=== PATIENT | female | born 2000 | race African-American/Black ===

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

== ENCOUNTER 2020-05-20 00:38 | Emergency (ER) | payer BC, MEDICAID ==
[~2020-05-20] VITALS: Ht 167.6 cm; Wt 56.0 kg
[2020-05-20] MEDS ORDERED: MORPHINE SULFATE 4 MG/ML CPJ (NOT FOR IM USE) IV STA (01:37)
[2020-05-20] MEDS ORDERED: ONDANSETRON HCL 4MG/2ML INJ IV STA (01:37)
[2020-05-20] MEDS ORDERED: SODIUM CHLORIDE 0.9% 1,000 ML IV ONE (01:45)
[2020-05-20 02:03] LABS: BASOPHILS % 0.9 % (0.0-2.0); EOSINOPHILS % 2.3 % (0.0-5.0); HEMOGLOBIN. 13.2 g/dL (12.0-16.0); LYMPHOCYTES % 23.8 % (20.0-50.0); MEAN CORPUSCULAR HEMOGLOBIN 26.3 pg (28.0-32.0); MEAN CORPUSCULAR VOLUME 81.5 fL (81.0-99.0); MONOCYTES % 7.6 % (2.0-8.0); NEUTROPHILS % 65.4 % (40.0-76.0); PLATELET 225 x1000/uL (130-400); RED BLOOD CELL COUNT 5.03 mill/uL (4.2-5.4); RED CELL DISTRIBUTION WIDTH 14.4 % (11.6-14.6)
[2020-05-20 02:04] LABS: CHLORIDE 110 mEq/L (98-107)
[2020-05-20 02:10] LABS: HCG SCREEN NEGATIVE
[2020-05-20] MEDS ORDERED: IOHEXOL-300 100 ML BOTTLE ONE (03:16)
[2020-05-20 04:30] VITALS: BP 106/73
== END 2020-05-20 04:58 | disposition home or self-care (01) ==
LOC: ER 00:38
DX: S30.1XXA Contusion of abdominal wall, initial encounter (principal); V49.49XA Driver injured in collision with other motor vehicles in traffic accident, initial encounter; Y93.89 Activity, other specified; Y92.89 Other specified places as the place of occurrence of the external cause; Y99.8 Other external cause status
CPT/HCPCS: 36415; 71045; 74177; 80048; 83690; 84703; 85025; 86850; 86900; 86901; 93005; 96361; 96374; 96375; 99285; J2270; J2405; J7030; Q9967

== ENCOUNTER 2023-02-05 03:11 | Emergency (ER) | payer MEDICAID ==
[~2023-02-05] VITALS: Ht 162.6 cm; Wt 55.6 kg
[2023-02-05 03:18] VITALS: BP 113/72; O2SAT 99
[2023-02-05] MEDS ORDERED: ACETAMINOPHEN 325MG TABLET PO ONE (03:45)
[2023-02-05 05:03] LABS: CLARITY URINE CLEAR (CLEAR); COLOR URINE YELLOW (YELLOW); GLUCOSE URINE NEGATIVE (NEGATIVE); KETONES URINE TRACE (NEGATIVE); LEUKOCYTE ESTERASE URINE TRACE (NEGATIVE); NITRITE URINE NEGATIVE (NEGATIVE); OCCULT BLOOD URINE NEGATIVE (NEGATIVE); PROTEIN URINE TRACE (NEGATIVE); SPECIFIC GRAVITY URINE 1.026 (1.005-1.030)
[2023-02-05 05:06] LABS: BACTERIA URINE NONE SEEN; RBC URINE NONE SEEN /hpf (0-2); SQUAMOUS EPITHELIAL CELL URINE 1+ /lpf (RARE/1+); WBC URINE 0-2 /hpf (0-2); YEAST URINE NONE SEEN
[2023-02-05] MEDS ORDERED: CEPH500C2 MT (05:26)
[2023-02-05] MEDS ORDERED: IBUP-2029 MT (05:26)
[2023-02-05 05:43] VITALS: PULSE 92; RESP 18; TEMP 99.2
== END 2023-02-05 05:45 | disposition home or self-care (01) ==
LOC: ER 03:11
DX: B34.9 Viral infection, unspecified (principal); Z20.822 Contact with and (suspected) exposure to COVID-19
CPT/HCPCS: 99283; 87426; 81003; 81025; 87804 ×2; C9803

== ENCOUNTER 2023-03-02 11:07 | Emergency (ER) | payer MEDICAID ==
[~2023-03-02] VITALS: Ht 162.6 cm; Wt 57.0 kg
[~2023-03-02 11:07] MED LIST: CEPH500C2 MT; IBUP-2029 MT
[2023-03-02 11:09] VITALS: PULSE 103; RESP 18
[2023-03-02 11:14] VITALS: BP 116/78; TEMP 98.2; O2SAT 100
[2023-03-02 11:57] LABS: CLARITY URINE TURBID (CLEAR); COLOR URINE RED (YELLOW); GLUCOSE URINE NEGATIVE (NEGATIVE); KETONES URINE NEGATIVE (NEGATIVE); LEUKOCYTE ESTERASE URINE 3+ (NEGATIVE); NITRITE URINE NEGATIVE (NEGATIVE); OCCULT BLOOD URINE 3+ (NEGATIVE); PH URINE 6.5 (4.5-8.0); PROTEIN URINE 2+ (NEGATIVE); SPECIFIC GRAVITY URINE 1.014 (1.005-1.030)
[2023-03-02 12:16] LABS: BACTERIA URINE TRACE; RBC URINE TNTC /hpf (0-2); SQUAMOUS EPITHELIAL CELL URINE 1+ /lpf (RARE/1+); WBC URINE 25-50 /hpf (0-2)
[2023-03-02] MEDS ORDERED: PHEN-815 MT (13:03)
[2023-03-02] MEDS ORDERED: NITR-87 MT (13:03)
== END 2023-03-02 13:19 | disposition home or self-care (01) ==
LOC: ER 11:07
DX: N39.0 Urinary tract infection, site not specified (principal)
CPT/HCPCS: 81003; 81025; 99283